=== PATIENT | male | born 1995 | race Caucasian/White ===

== ENCOUNTER 2024-01-29 11:15 | Emergency (ER) | payer OTHER ==
[2024-01-29 11:33] VITALS: TEMP 98
[2024-01-29] MEDS: TORAdol 30 mg Injection IV ONE (11:38)
--- NOTE | 2024-01-29 11:38 | ERPHSYRPT ---
- History of Present Illness Time Seen by Provider: 01/29/24 11:23 Source: patient Exam Limitations: no limitations Patient Subjective Stated Complaint: States he was weed eating approx one hour ago and was stung multiple times by ground hornets. Denies SOB. Triage Nursing Assessment: Patient ambulated back to ER without difficulties. No SOB. No cough. Redness and swelling noted to the following areas reports as stings by patient: Left hand, Left upper arm, left rib area, right forearm, right lateral knee. Physician History: Patient here with multiple ground hornet stings. Patient has 5 distinct stings. Over his arms and legs. He has 1 to his left torso. No other falls or trauma. Patient does not believe that he is allergic to bee stings. Patient states that he has no tongue swelling, lip swelling, difficulty breathing. He has no scratchy throat. He has never needed to use an EpiPen before. He has no chest pain, fever, chills. No other signs of sick illness, is taking p.o. without difficulty. Allergies/Adverse Reactions: No Known Drug Allergies Allergy (Verified 01/29/24 11:24) Home Medications: No Reportable Medications [No Reported Medications] 01/29/24 [History] Hx Tetanus, Diphtheria Vaccination/Date Given: Yes Immunizations Up to Date: Yes Travel Risk - International Travel Have you traveled outside of the country in past 3 weeks: No - Emerging Infectious Disease Are you exhibiting symptoms associated with any current EIDs: No - Past Medical History Pertinent Past Medical History: No - Past Surgical History Past Surgical History: No - Social History Smoking Status: Current every day smoker Exposure to second hand smoke: No Drug Use: none - Social Determinants of Health Will the patient participate in the screening: Yes Do you worry about a steady place to live?: No Do you have any problems with any of the following?: No known problems In the past 12 months,have you had to go without utilities?: No Transportation Issues: No Has anyone in your support network made you feel unsafe?: No Have you or anyone in your house had to go without enough: No - Nursing Vital Signs Nursing Vital Signs: Initial Vital Signs O2 Sat by Pulse Oximetry 100 01/29/24 11:16 Pain Scale Pain Intensity 3 - Physical Exam SpO2: 100 Comments: 01/29/24 11:37 Review of Systems Constitutional: Negative for fever. HENT: Negative for congestion. Respiratory: Negative for shortness of breath. Cardiovascular: Negative for chest pain. Gastrointestinal: Negative for abdominal pain. Genitourinary: Negative for dysuria. Musculoskeletal: Negative for back pain. Skin: Negative for rash. Multiple ground hornet stings Neurological: Negative for headaches. Psychiatric/Behavioral: Negative for behavioral problems. All other systems reviewed and are negative. Physical Exam Vitals signs and nursing note reviewed. Constitutional: Appearance: Patient is well-developed. HENT: Head: Normocephalic and atraumatic. Eyes: Conjunctiva/sclera: Conjunctivae normal. Neck: Musculoskeletal: Normal range of motion. Trachea: No tracheal deviation. Cardiovascular: Rate and Rhythm: Normal rate. Pulmonary: Effort: Pulmonary effort is normal. No respiratory distress. Abdominal: Palpations: Abdomen is soft. Musculoskeletal: General: No deformity. Patient has 5 distinct areas of swelling, irritation and edema. Left forearm, left hand, right forearm, right thigh, left torso. No obvious deformity, sensation intact, 2+ capillary refill, 2 point tactile discrimination intact. 5 out of 5 strength. Full range of motion without pain. Compartments are soft, nontender. Overlying skin shows no tenting, bruising, ecchymosis. Skin: General: Skin is warm and dry. Neurological/ Psychiatric: Mental Status: Mental status, behavior, interaction with environment is tone ropriate for patient's age and condition No trismus, able to fully extend neck, normal range of motion of neck without pain. Uvula is midline, no swelling of the mouth, noraml oropharynx. No exudate, no signs of meningitis, no floor of mouth swelling, no hot potato voice on exam. No buccal swelling, no gum bleeding, no signs of tooth abscess/infection. - Course Nursing assessment & vital signs reviewed: Yes Ordered Tests: Medication Summary Discontinued Medications Generic Name Dose Route Start Last Admin Trade Name Freq PRN Reason Stop Dose Admin Acetaminophen 1,000 mg 01/29/24 11:35 01/29/24 11:42 Acetaminophen 500 Mg Tablet PO 01/29/24 11:36 1,000 mg STAT STA Administration Acetaminophen Confirm 01/29/24 11:39 Acetaminophen 500 Mg Tablet Administered 01/29/24 11:40 Dose 1,000 mg .ROUTE .STK-MED ONE Dexamethasone Sodium Phosphate 10 mg 01/29/24 11:35 01/29/24 11:43 Dexamethasone Sod Phosphate 10 Mg/Ml PO 01/29/24 11:36 10 mg STAT ONE Administration Dexamethasone Sodium Phosphate Confirm 01/29/24 11:39 Dexamethasone Sod Phosphate 10 Mg/Ml Administered 01/29/24 11:40 Dose 10 mg .ROUTE .STK-MED ONE Ketorolac Tromethamine 30 mg 01/29/24 11:35 01/29/24 11:38 Ketorolac Tromethamine 30 Mg/Ml Inj IV 01/29/24 11:36 Not Given STAT ONE Ketorolac Tromethamine 30 mg 01/29/24 11:38 01/29/24 11:42 Ketorolac Tromethamine 30 Mg/Ml Inj IM 01/29/24 11:39 30 mg STAT ONE Administration Ketorolac Tromethamine Confirm 01/29/24 11:39 Ketorolac Tromethamine 30 Mg/Ml Inj Administered 01/29/24 11:40 Dose 30 mg .ROUTE .STK-MED ONE - Progress Progress: improved Progress Note: 01/29/24 11:[address] himself here, and is unable to find a ride home therefore we will do oral Decadron, oral Tylenol, Toradol shot for pain. No plan for Benadryl at this point in time given he cannot find a ride home. I do not believe that he needs epinephrine at this point in time given that he is hemodynamically stable with no oral airway involvement, no lip swelling, tongue swelling. 01/29/24 12:40 Patient continues to feel well in the emergency department. No further pain, swelling. States that his symptoms have mostly improved. Continued no oral airway swelling, difficulty breathing, wheezing. Plan for discharge home at this point in time. Close follow-up with PCP. Patient may return here sooner for any new or changing symptoms. Counseled pt/family regarding: diagnosis, need for follow-up - Departure Departure Disposition: Home Clinical Impression: Hornet sting Condition: Stable Critical Care Time: No Referrals: DOCTOR,NO FAMILY [Primary Care Provider] - Follow up/PCP as directed Instructions: Contact Dermatitis (DC)
[2024-01-29] MEDS ORDERED: TYLENOL EXTRA STRENGTH 500 MG ONE (11:39)
[2024-01-29] MEDS ORDERED: DECADRON 10MG INJ. ONE (11:39)
[2024-01-29] MEDS ORDERED: TORAdol 30 mg Injection ONE (11:39)
[2024-01-29] MEDS: TYLENOL EXTRA STRENGTH 500 MG PO STA (11:42)
[2024-01-29] MEDS: TORAdol 30 mg Injection IM ONE (11:42)
[2024-01-29] MEDS: DECADRON 10MG INJ. PO ONE (11:43)
[2024-01-29 12:38] VITALS: BP 125/87
[2024-01-29 12:48] VITALS: PULSE 72; RESP 16; O2SAT 98
== END 2024-01-29 12:51 | disposition home or self-care (01) ==
LOC: ED 11:15
DX: T63.451A Toxic effect of venom of hornets, accidental (unintentional), initial encounter (principal); Y93.H2 Activity, gardening and landscaping; Y99.0 Civilian activity done for income or pay; Z72.0 Tobacco use
CPT/HCPCS: 96372; 99283; J1100; J1885; A9270-GY

== ENCOUNTER 2024-07-27 00:33 | Emergency (ER) | payer MEDICAID, OTHER ==
--- NOTE | 2024-07-27 01:09 | ERPHSYRPT ---
- History of Present Illness Source: patient Exam Limitations: no limitations Physician History: Patient's had a cough for about 2 weeks. He has some asthma that has his mother worried. He is moving air really well. He seemed to have some sort of panic attack or something whenever he first got here. They also describe some activity at home happened 2 times today when he had a stares off into space for about a minute or 2. Normal sound like an absence seizure. He has never had problems like that before. Will have him follow-up with her primary doctor about that. His cough has been going on for about a week or 2. He has not had any fever chills or bodyaches or flulike symptoms. The cough has been productive of green sputum. He says that it feels like it is deep but he can cough it up. Allergies/Adverse Reactions: No Known Drug Allergies Allergy (Verified 01/29/24 11:24) Home Medications: No Reportable Medications [No Reported Medications] 01/29/24 [History] Hx Tetanus, Diphtheria Vaccination/Date Given: Yes Travel Risk - Emerging Infectious Disease Are you exhibiting symptoms associated with any current EIDs: No - Review of Systems Constitutional: No Symptoms Respiratory: Cough Cardiac: No Symptoms Musculoskeletal: No Symptoms Skin: No Symptoms Neurological: No Symptoms - Past Medical History Pertinent Past Medical History: No - Past Surgical History Past Surgical History: No - Social History Smoking Status: Current every day smoker Exposure to second hand smoke: No Drug Use: none - Social Determinants of Health Will the patient participate in the screening: Yes Do you worry about a steady place to live?: No In the past 12 months,have you had to go without utilities?: No Transportation Issues: No Has anyone in your support network made you feel unsafe?: No Have you or anyone in your house had to go w/o enough food: No - Nursing Vital Signs Nursing Vital Signs: Initial Vital Signs Temperature 98.9 F 07/27/24 00:45 Pulse Rate 115 H 07/27/24 00:45 Respiratory Rate 23 07/27/24 00:45 Blood Pressure 119/83 07/27/24 00:45 O2 Sat by Pulse Oximetry 100 07/27/24 00:45 Pain Scale Pain Intensity 0 - Physical Exam General Appearance: no apparent distress Ears, Nose, Throat Exam: normal ENT inspection, TMs normal Respiratory Exam: normal breath sounds, lungs clear, No chest tenderness, No respiratory distress Cardiovascular Exam: regular rate/rhythm, normal heart sounds Gastrointestinal/Abdomen Exam: soft, normal bowel sounds, No tenderness Neurologic Exam: alert, oriented x 3 Skin Exam: normal color, warm Ordered Tests: Active Orders 24 hr Category Date Time Status CHEST 1 VIEW (PORTABLE) Stat Exams 07/27/24 01:10 Taken Lab/Rad Data: Laboratory Results 07/27/24 Range/Units 01:16 Influenza Type A Ag NEGATIVE (NEGATIVE) Influenza Type B Ag NEGATIVE (NEGATIVE) RSV (PCR) NEGATIVE (NEGATIVE) SARS-CoV-2 (PCR) NEGATIVE (NEGATIVE) - Progress Progress Note: Patient was stable throughout stay. He got a chest x-ray that did not show any infiltrates. His COVID flu and RSV were all negative. At this time I think just has a Bronchitis. He was having some green productive sputum somata start him on a Z-Steve. He is going to follow-up with her primary care doctor.On the differential diagnosis was COVID flu RSV pneumonia bronchitis 07/27/24 02:47 07/27/24 02:48 - Departure Departure Disposition: Home Clinical Impression: Acute bronchitis Condition: Stable Critical Care Time: No Referrals: DOCTOR,NO FAMILY [Primary Care Provider] - Follow up/PCP as directed Instructions: Acute bronchitis in adults
[2024-07-27 01:30] VITALS: RESP 23; TEMP 98.9
[2024-07-27 01:54] LABS: INFLUENZA A NEGATIVE (NEGATIVE); INFLUENZA B NEGATIVE (NEGATIVE); RESPIRATORY SYNCTIAL VIRUS NEGATIVE (NEGATIVE); SARS-CoV-2 Xpert Express NEGATIVE (NEGATIVE)
[2024-07-27 02:19] VITALS: BP 117/70; PULSE 108; O2SAT 99
[2024-07-27] MEDS ORDERED: Zithromax 250 MG TABLET ONE (02:51)
[2024-07-27] MEDS: Zithromax 250 MG TABLET PO ONE (02:52)
--- NOTE | 2024-07-27 08:46 | XRAY ---
Indication: Cough. Comparison: None Portable chest demonstrates normal heart, lungs, and bony thorax.
== END 2024-07-27 03:02 | disposition home or self-care (01) ==
LOC: ED 00:33
DX: J20.9 Acute bronchitis, unspecified (principal); R05.1 Acute cough; Z79.899 Other long term (current) drug therapy; Z72.0 Tobacco use
CPT/HCPCS: 0241U; 71045; 93005; 99285; 99284; A9270-GY

== ENCOUNTER 2025-03-17 23:06 | Emergency (ER) | payer SELFPAY ==
[2025-03-17 23:23] VITALS: TEMP 97.1; O2SAT 99
[2025-03-17] MEDS ORDERED: XYLOCAINE 1% HCL 20 ML MDV ONE ×2 (23:27→23:37)
--- NOTE | 2025-03-17 23:32 | ERPHSYRPT ---
- History of Present Illness Time Seen by Provider: 03/17/25 23:27 Source: patient Exam Limitations: no limitations Patient Subjective Stated Complaint: c/o finger laceration of left ringer finger Triage Nursing Assessment: Patient brought to ED by girlfriend with c/o left ring finger laceration. patient was pulling a profile grinder technician off a shelf and landed on his finger. patient has a 3cm laceration on the dorsal side of his left ring finger. no bleeding present at this time, gait steady, afebrile, doesn't appear to be in any distress at this time. Physician History: 29-year-old male presents to our ED for evaluation and treatment of a laceration to his left ring finger. Patient states that he was pulling a profile grinder technician off of a shelf. The sugar grinder fell and landed on his involved digit. Injury occurred just prior to arrival. Patient has a 3 cm laceration at the dorsal aspect of the left fourth digit middle phalanx. Injury measures approximately 3 cm. No other injuries reported. Patient otherwise asymptomatic. Tetanus is not up-to-date. Significant other at bedside. They voiced no other complaints or concerns at this time. Patient is left-hand dominant Portions of this note were created with voice recognition technology. There may be grammatical, spelling, punctuation or sound alike errors Timing/Duration: today Severity: moderate Modifying Factors: Improves With: nothing Associated Symptoms: denies symptoms Allergies/Adverse Reactions: No Known Drug Allergies Allergy (Verified 03/17/25 23:10) Hx Tetanus, Diphtheria Vaccination/Date Given: No (unknown) Hx Influenza Vaccination/Date Given: No Hx Pneumococcal Vaccination/Date Given: No Travel Risk - International Travel Have you traveled outside of the country in past 3 weeks: No - Emerging Infectious Disease Are you exhibiting symptoms associated with any current EIDs: No - Review of Systems All Other Systems: Reviewed and Negative - Past Medical History Pertinent Past Medical History: No Neurological History: No Pertinent History ENT History: No Pertinent History Cardiac History: No Pertinent History Respiratory History: Asthma Endocrine Medical History: No Pertinent History Musculoskeletal History: No Pertinent History GI Medical History: No Pertinent History History: No Pertinent History Psycho-Social History: No Pertinent History Male Reproductive Disorders: No Pertinent History Other Medical History: broken toe - Past Surgical History Past Surgical History: No Neuro Surgical History: No Pertinent History Cardiac: No Pertinent History Respiratory: No Pertinent History Gastrointestinal: No Pertinent History Genitourinary: No Pertinent History Musculoskeletal: No Pertinent History Male Surgical History: No Pertinent History - Social History Smoking Status: Current every day smoker Exposure to second hand smoke: No Drug Use: none - Social Determinants of Health Will the patient participate in the screening: Yes Do you worry about a steady place to live?: No Do you have any problems with any of the following?: No known problems In the past 12 months,have you had to go without utilities?: No Transportation Issues: No Has anyone in your support network made you feel unsafe?: No Have you or anyone in your house had to go w/o enough food: No - Nursing Vital Signs Nursing Vital Signs: Initial Vital Signs Temperature 97.1 F 03/17/25 23:11 Pulse Rate 83 03/17/25 23:11 Respiratory Rate 17 03/17/25 23:11 Blood Pressure 121/100 03/17/25 23:11 O2 Sat by Pulse Oximetry 99 03/17/25 23:11 Pain Scale Pain Intensity 8 - Physical Exam General Appearance: no apparent distress, alert Ears, Nose, Throat Exam: normal ENT inspection, moist mucous membranes Neck Exam: normal inspection, full range of motion Respiratory Exam: normal breath sounds, airway intact, No respiratory distress Cardiovascular Exam: normal peripheral pulses Gastrointestinal/Abdomen Exam: No tenderness, No mass Back Exam: normal inspection, normal range of motion, No CVA tenderness, No vertebral tenderness Extremity Exam: normal inspection, normal range of motion, pelvis stable, other Neurologic Exam: alert, oriented x 3, cooperative, normal mood/affect, nml cerebellar function, nml station & gait, sensation nml, No motor deficits Skin Exam: normal color, warm, dry, No rash Lymphatic Exam: No adenopathy SpO2 Interpretation: normal SpO2: 99 O2 Delivery: Room Air Procedures - Laceration/Wound Repair Left Finger Time of Procedure: 00:02 Wound Location: Left Wound Length (cm): 3 Wound's Depth, Shape: superficial Wound Explored: clean Irrigated: Yes Hibiclens Prep: Yes Anesthesia: local, 1% Lidocaine Volume Anesthetic (ccs): 4 Wound Debrided: minimal (Minimal debridement.) Wound Repaired With: sutures Suture Size/Type: 5-0, ethilon Number of Sutures: 8 Layer Closure?: No Sterile Dressing Applied?: Yes Splint Applied?: No Type of Splint Applied: AlumaFoam Sling Applied?: No Progress: Patient tolerated procedure well. No intra or postprocedural complications. Patient neurovasc intact distally post procedure. 03/18/25 00:03 - Course Nursing assessment & vital signs reviewed: Yes - Radiology Exams Hand X-ray Interpretation: Teleradiologist Report (Nondisplaced distal phalanx fracture) Ordered Tests: Active Orders 24 hr Category Date Time Status HAND (MINIMUM 3 VIEWS) Stat Exams 03/17/25 23:22 Completed Medication Summary Discontinued Medications Generic Name Dose Route Start Last Admin Trade Name Freq PRN Reason Stop Dose Admin Bacitracin Zinc 0.9 each 03/17/25 23:58 03/18/25 00:00 Bacitracin Packet 1 Each Pckt TP 03/17/25 23:59 0.9 each STAT STA Administration Bacitracin Zinc Confirm 03/17/25 23:59 Bacitracin Packet 1 Each Pckt Administered 03/18/25 00:00 Dose 1 each .ROUTE .STK-MED ONE Ceftriaxone Sodium 1,000 mg 03/17/25 23:34 03/17/25 23:38 Ceftriaxone Sodium 1000 Mg Inj Vial IM 03/17/25 23:35 1,000 mg STAT ONE Administration Ceftriaxone Sodium Confirm 03/17/25 23:35 Ceftriaxone Sodium 1000 Mg Inj Vial Administered 03/17/25 23:36 Dose 1,000 mg .ROUTE .STK-MED ONE Diphtheria/Tetanus/Acell Pertussis 0.5 ml 03/17/25 23:27 03/17/25 23:34 Tdap --Diph,Pertuss(Acell),Tet Vac/Pf 0.5 Ml Vial IM 03/17/25 23:28 0.5 ml .ONCE ONE Administration Diphtheria/Tetanus/Acell Pertussis Confirm 03/17/25 23:33 Tdap --Diph,Pertuss(Acell),Tet Vac/Pf 0.5 Ml Vial Administered 03/17/25 23:34 Dose 0.5 ml IM .STK-MED ONE Lidocaine HCl Confirm 03/17/25 23:27 Lidocaine Hcl 1% 20 Ml Mdv 20 Ml Ml Administered 03/17/25 23:28 Dose 1 ml .ROUTE .STK-MED ONE Lidocaine HCl 4 ml 03/17/25 23:32 03/17/25 23:33 Lidocaine Hcl 1% 20 Ml Mdv 20 Ml Ml IJ 03/17/25 23:33 4 ml STAT ONE Administration Lidocaine HCl Confirm 03/17/25 23:37 Lidocaine Hcl 1% 20 Ml Mdv 20 Ml Ml Administered 03/17/25 23:38 Dose 6 ml .ROUTE .P4RC-Ambiq Micro ONE - Progress Progress: improved Progress Note: 29-year-old male presents to our ED for evaluation and treatment of a laceration to his left ring finger. Patient states that he was pulling a profile grinder technician off of a shelf. The sugar grinder fell and landed on his involved digit. Physical exam reveals a 3 cm laceration along the length of the finger at the dorsal medial aspect of the left ring finger. The involved digits neurovasc intact distally compartments are soft cap refill less than 2 seconds. No obvious involvement of the flexor or extensor tendons. Nail bed nail plate intact. No subungual hematoma. History obtained from patient and significant other who is at the bedside. Differential diagnosis includes laceration, fracture, tendon injury, ligamentous injury, crush injury Dr. Pandya independently reviewed and interpreted the x-ray of the involved hand/digit. No fracture or dislocation observed. This is a preliminary read. Formal read pending. Because the equipment causing the laceration was contaminated, the wound was adjacent to the extensor tendon patient received an IM prophylactic dose of Rocephin. A prescription for Keflex forwarded to patient's pharmacy. Patient's tetanus was updated as well. Laceration was repaired using 8 simple interrupted sutures. The wound was anesthetized using 4 mL 1% lidocaine no epinephrine. Patient neurovasc intact distally post procedure. 03/18/25 00:07 Counseled pt/family regarding: diagnosis, need for follow-up, rad results - Departure Departure Disposition: Home Clinical Impression: Laceration, Open fracture Condition: Stable Critical Care Time: No Referrals: DOCTOR,NO FAMILY [Primary Care Provider, UNKNOWN] - Follow up/PCP as directed NIXON PLATT MD [ACTIVE STAFF, FAMILY PRACTICE] - Follow up/PCP as directed Instructions: Wound Care (DC), Laceration Repair With Stitches (DC) Additional Instructions: Discharge/Care Plan JOSE ROBLES was seen on 03/17/25 in the Emergency Room. The patient was counseled regarding Diagnosis,Lab results, Imaging studies, need for follow up and when to return to the Emergency Room. Prescriptions given: Discharge Note I have spoken with the patient and/or caregivers. I have explained the patient's condition, diagnosis and treatment plan based on the information available to me at this time. I have answered the patient's and/or caregiver's questions and addressed any concerns. The patient and/or caregivers have as good understanding of the patient's diagnosis, condition and treatment plan as can be expected at this point. The vital signs have been stable. The patient's condition is stable and appropriate for discharge from the emergency department. The patient will pursue further outpatient evaluation with the primary care physician or other designated or consulting physician as outlined in the discharge instructions. The patient and/or caregivers are agreeable to this plan of care and follow-up instructions have been explained in detail. The patient and/or caregivers have received these instruction. The patient/and or caregivers are aware that any significant change in condition or worsening of symptoms should prompt an immediate return to this or the closest emergency department or call 911. Prescriptions: Cephalexin Mh 500 mg [Keflex 500 mg] 500 mg PO TID #21 cap Outpatient Orders: Ortho Referral Time Frame: 1 Day, Facility: [facility], Location: ORTHO CLINIC
[2025-03-17] MEDS ORDERED: Adacel Vial IM ONE (23:33)
[2025-03-17] MEDS: XYLOCAINE 1% HCL 20 ML MDV IJ ONE (23:33)
[2025-03-17] MEDS: Adacel Vial IM ONE (23:34)
[2025-03-17] MEDS ORDERED: Rocephin 1000 MG INJ ONE (23:35)
[2025-03-17] MEDS: Rocephin 1000 MG INJ IM ONE (23:38)
[2025-03-17] MEDS ORDERED: BACIGUENT PACKET ONE (23:59)
[2025-03-18] MEDS: BACIGUENT PACKET TP STA
[2025-03-18 00:07] VITALS: RESP 16
[2025-03-18 00:33] VITALS: BP 114/79; PULSE 97
--- NOTE | 2025-03-18 01:07 | XRAY ---
CLINICAL HISTORY: pain COMPARISON: No prior studies are available for comparison. TECHNIQUE: X-ray images of the hand were obtained in PA, lateral, and oblique projections. FINDINGS: Bone Structure: There is a lucent line seen in the body of the distal phalanx of the fourth finger, suggestive of a nondisplaced fracture. There is cortical irregularity with areas of cortical thickening of the second metacarpal bone. Joint Spaces: Joint spaces are normal. There is no evidence of joint effusion or subluxation. Soft Tissues: Soft tissue swelling of the fourth finger is noted. No soft tissue calcifications or foreign body are identified. Additional Findings: There are no signs of osteoarthritis, bone spurs, lytic or sclerotic lesions. IMPRESSION: 1. A lucent line is seen in the body of the distal phalanx of the fourth finger, suggestive of a nondisplaced fracture. Associated soft tissue swelling is noted. 2. There is cortical irregularity with areas of cortical thickening of the second metacarpal bone. These findings could be related to a normal variant or posttraumatic changes. Clinical correlation is required. Disclaimer: A subtle bone abnormality or fracture may not be readily apparent on X-rays, thus clinical correlation and further imaging including follow-up CT, MRI, or follow-up X-rays are advised as needed. Electronically Signed by: Luís Ohara MD. (03/18/2025 01:04:58 EDT)
== END 2025-03-18 00:25 | disposition home or self-care (01) ==
LOC: ED 23:06
DX: S61.215A Laceration without foreign body of left ring finger without damage to nail, initial encounter (principal); S62.665B Nondisplaced fracture of distal phalanx of left ring finger, initial encounter for open fracture; W22.8XXA Striking against or struck by other objects, initial encounter; Z72.0 Tobacco use; Z23 Encounter for immunization